=== PATIENT | female | born 1985 | race Caucasian/White ===

== ENCOUNTER 2022-04-01 13:18 | Emergency (ER) | payer MEDICAID ==
[~2022-04-01] VITALS: Ht 160 cm; Wt 66.0 kg
[2022-04-01 13:25] VITALS: BP 111/76
== END 2022-04-01 17:15 | disposition left against medical advice (07) ==
LOC: ER 13:18
DX: Z53.21 Procedure and treatment not carried out due to patient leaving prior to being seen by health care provider (principal)